=== PATIENT | female | born 1990 | race Caucasian/White ===

== ENCOUNTER → 2019-10-30 | Outpatient (CLI) | payer OTHER | END | disposition home or self-care (01) | LOC: RAH 15:25 | PROVIDERS: ATTEND Family Medicine | DX: R20.0 Anesthesia of skin (principal); R52 Pain, unspecified | CPT/HCPCS: 72040; 72070 ==

== ENCOUNTER 2020-02-15 20:51 | Emergency (ER) | payer OTHER ==
[2020-02-15] MEDS ORDERED: ACETAMINOPHEN 325 MG TAB ONE (21:12)
[2020-02-15 21:22] LABS: APPEARANCE,URINE Clear (CLEAR); BILIRUBIN,URINE Negative (NEGATIVE); COLOR,URINE Yellow (YELLOW); GLUCOSE, URINE (UA) Negative (NEGATIVE); KETONES,URINE Negative (NEGATIVE); LEUKOCYTE ESTERASE ,URINE Trace (NEGATIVE); NITRATE,URINE Negative (NEGATIVE); OCCULT BLOOD,URINE Negative (NEGATIVE); PH,URINE 7.5 (5.0-8.0); PROTEIN,URINE Negative (NEGATIVE); UROBILINOGEN,URINE 0.2 mg/dL (0.2-1.0)
[2020-02-15 21:29] LABS: BACTERIA,URINE Rare /HPF (None Seen); RBC,URINE 0-1 /HPF (0-1); SQUAMOUS EPITHELIAL CELL,UR Few /HPF (0-2)
[2020-02-15 21:57] LABS: RAPID GROUP A STREP NEGATIVE (NEGATIVE)
== END 2020-02-15 22:54 | disposition home or self-care (01) ==
LOC: EDH 20:51
DX: J20.9 Acute bronchitis, unspecified (principal); Z20.828 Contact with and (suspected) exposure to other viral communicable diseases
CPT/HCPCS: 71045; 81001; 81025; 87426; 87804 ×2; 87880; 99284; U0003

== ENCOUNTER 2020-08-14 20:26 | Emergency (ER) | payer BC ==
[~2020-08-14] VITALS: Ht 160 cm; Wt 104.3 kg
[2020-08-14] MEDS ORDERED: IBUPROFEN 600 MG TABLET PO ONE (21:00)
[2020-08-14 21:44] VITALS: BP 124/70
[2020-08-14] MEDS ORDERED: MELO7.5T12 PO (22:24)
[2020-08-14] MEDS ORDERED: CYCL10TA7 PO (22:24)
[2020-08-14] MEDS ORDERED: CYCLOBENZAPRINE HCL 10 MG TABLET PO ONE (22:30)
== END 2020-08-14 23:01 | disposition home or self-care (01) ==
LOC: EDH 20:26
DX: S80.01XA Contusion of right knee, initial encounter (principal); S50.02XA Contusion of left elbow, initial encounter; J45.909 Unspecified asthma, uncomplicated; Z79.899 Other long term (current) drug therapy; W01.10XA Fall on same level from slipping, tripping and stumbling with subsequent striking against unspecified object, initial encounter; Y93.89 Activity, other specified; Y92.89 Other specified places as the place of occurrence of the external cause; Y99.8 Other external cause status
CPT/HCPCS: 73070; 73562

== ENCOUNTER 2020-09-10 17:42 | Emergency (ER) | payer BC ==
[~2020-09-10] VITALS: Ht 167.6 cm; Wt 108.9 kg
[~2020-09-10 17:42] MED LIST: CYCL10TA7 PO; MELO7.5T12 PO
[2020-09-10 17:44] VITALS: BP 133/79
[2020-09-10 18:53] VITALS: BP 132/78
[2020-09-10] MEDS ORDERED: CEFTRIAXONE 1G VIAL ONE (18:58)
[2020-09-10] MEDS ORDERED: LIDOCAINE HCL 1% 20 ML VIAL ONE (18:58)
[2020-09-10] MEDS ORDERED: ACETAMINOPHEN WITH CODEINE 1 TAB TAB ONE (18:59)
[2020-09-10] MEDS ORDERED: CORTSOL AD (19:17)
[2020-09-10] MEDS ORDERED: AMOX-429 PO (19:17)
[2020-09-10] MEDS ORDERED: ACET1TAB25 PO (19:17)
[2020-09-10] MEDS ORDERED: ACETAMINOPHEN WITH CODEINE 1 TAB TAB PO ONE (19:30)
[2020-09-10 20:09] VITALS: BP 128/72
== END 2020-09-10 20:10 | disposition home or self-care (01) ==
LOC: EDH 17:42
DX: H65.01 Acute serous otitis media, right ear (principal); J45.909 Unspecified asthma, uncomplicated; Z79.899 Other long term (current) drug therapy
CPT/HCPCS: 96372; 99284; J0696

== ENCOUNTER 2021-03-12 11:24 | Emergency (ER) | payer BC ==
[~2021-03-12] VITALS: Ht 167.6 cm; Wt 104.3 kg
[~2021-03-12 11:24] MED LIST changes: +ACET1TAB25 PO; +AMOX-429 PO; +CORTSOL AD; +CYCL-309 PO; -CYCL10TA7 PO
[2021-03-12 11:26] VITALS: BP 119/75
[2021-03-12] MEDS ORDERED: ACET-3194 PO (13:01)
[2021-03-12] MEDS ORDERED: PSEU120T62 PO (13:01)
[2021-03-12] MEDS ORDERED: ALBU8.5H8 IH (13:01)
[2021-03-12] MEDS ORDERED: BROM237S PO (13:01)
== END 2021-03-12 13:11 | disposition home or self-care (01) ==
LOC: EDH 11:24
DX: J06.9 Acute upper respiratory infection, unspecified (principal); Z20.822 Contact with and (suspected) exposure to COVID-19; E11.9 Type 2 diabetes mellitus without complications; Z79.1 Long term (current) use of non-steroidal anti-inflammatories (NSAID)

== ENCOUNTER 2022-08-24 11:42 | Emergency (ER) | payer BC ==
[~2022-08-24] VITALS: Ht 167.6 cm; Wt 95.7 kg
[~2022-08-24 11:42] MED LIST changes: +ACET-2079 PO; +ACET-3194 PO; -ACET1TAB25 PO; +ALBU8.5H8 IH; +BROM237S PO; +PSEU120T62 PO
[2022-08-24 11:46] VITALS: BP 121/80
[2022-08-24 12:16] LABS: APPEARANCE,URINE CLEAR (CLEAR); BILIRUBIN,URINE NEGATIVE (NEGATIVE); COLOR,URINE LIGHT-YELLOW (YELLOW); GLUCOSE, URINE (UA) NEGATIVE (NEGATIVE); KETONES,URINE NEGATIVE (NEGATIVE); LEUKOCYTE ESTERASE ,URINE NEGATIVE Leu/uL (NEGATIVE); NITRATE,URINE NEGATIVE (NEGATIVE); OCCULT BLOOD,URINE NEGATIVE (NEGATIVE); PH,URINE 7.5 (5.0-8.0); PROTEIN,URINE NEGATIVE (NEGATIVE); UROBILINOGEN,URINE 0.2 mg/dL (0.2-1.0)
[2022-08-24 12:26] LABS: MUCUS,URINE RARE LPF (None Seen); RBC,URINE 0-1 /HPF (0-1); SQUAMOUS EPITHELIAL CELL,UR MOD /HPF (0-2); WBC,URINE 0-1 /HPF (0-1)
[2022-08-24 12:31] LABS: HCG,QUALITATIVE URINE NEGATIVE (NEGATIVE)
[2022-08-24] MEDS ORDERED: ACETAMINOPHEN 500 MG TABLET PO ONE (13:00)
[2022-08-24 13:17] LABS: BASOPHILS % (AUTO) 0.3 % (0.0-5.0); EOSINOPHILS % (AUTO) 1.9 % (0.0-8.0); HEMATOCRIT 39.1 % (36-48); LYMPHOCYTES % (AUTO) 16.4 % (21.0-51.0); MEAN CORPUSCULAR HGB CONC 33.8 g/dL (32.0-36.0); MEAN CORPUSCULAR VOLUME 88.9 fL (79-99); MONOCYTES % (AUTO) 6.9 % (3.0-13.0); NEUTROPHILS % (AUTO) 74.3 % (40.0-77.0); PLATELET COUNT (AUTO) 285 K/uL (130-400); RED CELL DISTRIBUTION WIDTH 12.7 % (11.0-15.5)
[2022-08-24 13:26] LABS: CREATININE 0.7 mg/dL (0.5-1.5); POTASSIUM 3.8 mmol/L (3.5-5.1)
[2022-08-24 13:32] LABS: ALBUMIN 3.6 g/dL (3.5-5.0); TOTAL PROTEIN, SERUM 7.3 g/dL (6.0-8.3)
[2022-08-24] MEDS ORDERED: IBUP-2070 PO (14:59)
== END 2022-08-24 15:33 | disposition home or self-care (01) ==
LOC: EDH 11:42
DX: R10.2 Pelvic and perineal pain (principal); Z79.1 Long term (current) use of non-steroidal anti-inflammatories (NSAID)
CPT/HCPCS: 36415; 76857; 80053; 81001; 81025; 85025